=== PATIENT | female | born 1990 | race Caucasian/White ===

== ENCOUNTER 2017-07-16 10:08 | Emergency (ER) | payer OTHER ==
[2017-07-16 10:25] VITALS: BP 101/72
--- NOTE | 2017-07-16 11:01 | UC ---
Skin Complaint HPI - HPI Summary HPI Summary: No prior significant allegies. she has had rash for three days it is worse at times and better at times with benadryl. No swelling, joint pain. - History of Current Complaint Chief Complaint: UCSkin Time Seen by Provider: 07/16/17 10:50 Stated Complaint: RASH Hx Obtained From: Patient Hx Last Menstrual Period: "End of ... May" Onset/Duration: Gradual Onset, Lasting Days Skin Exposure Onset/Duration: Days Ago Timing: Constant Onset Severity: Moderate Current Severity: Mild Location: Diffuse Aggravating: Nothing Alleviating: Antihistamines Associated Signs & Symptoms: Positive: Negative - Allergy/Home Medications Allergies/Adverse Reactions: Allergies Allergy/AdvReac Type Severity Reaction Status Date / Time Cat Dander Allergy "Throat is Uncoded 07/16/17 10:21 itchy ... hard to breathe." Home Medications: Home Medications diPHENhydraMINE PO* [Benadryl PO 25 MG TAB*] 50 mg PO Q6H PRN 07/16/17 [History Confirmed 07/16/17] Review of Systems Skin: Rash All Other Systems Reviewed And Are Negative: Yes PMH/Surg Hx/FS Hx/Imm Hx Previously Healthy: Yes - Surgical History Surgical History: Yes Surgery Procedure, Year, and Place: Left ACL/Meniscus, 02/2017, [facility] - Family History Known Family History: Positive: Other - no related history. - Social History Alcohol Use: Weekly Substance Use Type: None Smoking Status (MU): Never Smoked Tobacco - Immunization History Most Recent Influenza Vaccination: Not the Season Physical Exam Triage Information Reviewed: Yes Appearance: Well-Appearing, No Pain Distress, Well-Nourished Vital Signs: Initial Vital Signs Temp 98.5 F 07/16/17 10:18 Pulse 76 07/16/17 10:18 Resp 16 07/16/17 10:18 BP 101/72 07/16/17 10:18 Pulse Ox 100 07/16/17 10:18 Vital Signs Reviewed: Yes Eye Exam: Normal ENT Exam: Normal Neck exam: Normal Respiratory Exam: Normal Cardiovascular Exam: Normal Abdominal Exam: Normal Musculoskeletal Exam: Normal Neurological Exam: Normal Psychological Exam: Normal Skin: Positive: rashes - diffuse fine macular papular rash mainly on the extremeties. no swelling. Course/Dx - Course Course Of Treatment: diffuse rash without systemic symptoms. likely allergic reaction. we discussed possibility of it being to the crab. she has never had allergy to this in the past. - Diagnoses Provider Diagnoses: allergic reaction. rash. Discharge - Discharge Plan Condition: Good Disposition: HOME Prescriptions: predniSONE TAB* [Deltasone TAB*] 40 mg PO DAILY #5 tab Patient Education Materials: Acute Rash (ED) Referrals: No Primary Care Phys,NOPCP [Primary Care Provider] - Additional Instructions: return here for any worsening.
== END 2017-07-16 11:01 | disposition home or self-care (01) ==
LOC: UCCORT 10:08
DX: J30.81 Allergic rhinitis due to animal (cat) (dog) hair and dander (principal); T78.40XA Allergy, unspecified, initial encounter; R21 Rash and other nonspecific skin eruption; X58.XXXA Exposure to other specified factors, initial encounter
CPT/HCPCS: 99202; G0463